=== PATIENT | female | born 1985 | race Caucasian/White ===

== ENCOUNTER → 2018-05-12 | Outpatient (CLI) | payer OTHER ==
[~2018-05-12] MED LIST: MAGIC; PENI-22 PO; PRE20 PO
--- NOTE | 2018-05-12 14:21 | EKG ---
[place] [facility] [place] NAME: YULIANA BALBUENA : [id number] MR: [id number] V: [id number] EXAM DATE: ORDERING PHYSICIAN: JACLYN HAGEN TECHNOLOGIST: LAMAR Sigala Reason : PALPITATIONS Blood Pressure : / mmHG Vent. Rate : 101 BPM Atrial Rate : 101 BPM P-R Int : 148 ms QRS Dur : 080 ms QT Int : 352 ms P-R-T Axes : 059 068 062 degrees QTc Int : 456 ms Sinus tachycardia Possible biatrial enlargement No previous ECGs available Confirmed by LISSETH RALPH ([id number]) on 05/12/2018 3:52:28 PM Referred By: XIAO Confirmed By:LISSETH RALPH
== END ==
LOC: RESP 14:09
PROVIDERS: ATTEND Physician Assistant
DX: R00.0 Tachycardia, unspecified (principal)
CPT/HCPCS: 93005

== ENCOUNTER → 2018-05-20 | Outpatient (CLI) | payer OTHER ==
--- NOTE | 2018-05-22 23:37 | RT HOLTER TEST ---
FACILITY: [facility] PATIENT NAME: YULIANA BALBUENA : [id number] MR: [id number] V: [id number] EXAM DATE: ORDERING PHYSICIAN: JACLYN HAGEN TECHNOLOGIST: Dewayne Slade-up date: 2018-05-20 15:29:00 Duration: 47:58:00 Test Indications: R00.0, R94.31 Medications: NONE [id number] QRS complexes * Ventricular ectopics which represent % of total QRS comp. 9 Supraventricular ectopics which represent <1 % of total QRS comp. * Paced QRS complexes which represent % of total QRS comp. VENTRICULAR ECTOPY * Isolated * Bigeminal Cycles * Couplets * Runs * Beats in Runs * Beats LONGEST at * BPM at :: -- * Beats FASTEST at * BPM at :: -- SUPRAVENTRICULAR ECTOPY 5 Isolated 0 Couplets 1 Runs 4 Beats in Runs 4 Beats LONGEST at 139 BPM at 23:58:30 2018-05-21 4 Beats FASTEST at 139 BPM at 23:58:30 2018-05-21 HEART RATES 55 MIN at 04:40:22 2018-05-21 88 AVG 143 MAX at 19:12:21 2018-05-20 LONGEST RR 1.880 secs at 09:46:11 2018-05-22 S-T LEVELS Channel 1 -12.800 mm MIN at 15:29:00 2018-05-20 -12.800 mm MAX at 15:29:00 2018-05-20 Channel 2 -12.800 mm MIN at 15:29:00 2018-05-2012.800 mm MAX at 15:29:00 2018-05-20 Channel 3 -12.800 mm MIN at 15:29:00 2018-05-20.800 mm MAX at 15:29:00 2018-05-20 Sinus rhythym throughout test. Infrequent SVE generally in isolation but with 2 runs each 4 beats long. One noted as rapid heart rat e by patient. Infrequent pauses versus sinus arrythmia. Patient events during exercise correlate with sinus tachycardia. Negative halter test. Confirmed by Jamey Reardon ([id number]) on 05/22/2018 11:37:16 PM Referred By: Overread By: Jamey Garner
== END ==
LOC: US 03:07
PROVIDERS: ATTEND Physician Assistant
DX: R94.31 Abnormal electrocardiogram [ECG] [EKG] (principal)
CPT/HCPCS: 93225; 93226; 93306

== ENCOUNTER 2018-08-12 15:52 | Emergency (ER) | payer OTHER ==
--- NOTE | 2018-08-12 16:03 | ER Report ---
History and Physical Time Seen By MD: 16:03 Hx. of Stated Complaint: states pain inright leg since Dec 2017. started PT 2 months ago for 1 x per week. states it has increased her pain and caused back pain. pain has been in upper right thigh only. no pain currently but today she has experienced warmth to the site HPI/ROS CHIEF COMPLAINT: right leg warmer than left leg HISTORY OF PRESENT ILLNESS: Patient is a 32 year old female presenting to the ED with complaints of a right leg that is warmer than the left leg. Patient states that she has had calf pain for about one year. Pain states the pain has been moving around her leg, is sometimes in her ankle, knee, etc. Patient also states that her leg feels "different". Feels like it is more sensitive. States it feels better when she stands verses sitting or laying down. Patient states she has tried physical therapy. Patient states that she stopped physical therapy because it caused her to have back pain. Today she felt her upper right leg felt warmer than the left leg. Denies edema or erythemia. REVIEW OF SYSTEMS: Respiratory: No cough, no dyspnea. Cardiovascular: No chest pain, no palpitations. Gastrointestinal: No vomiting, no abdominal pain. Musculoskeletal: No back pain. Allergies: Coded Allergies: Sulfa (Sulfonamide Antibiotics) (Verified Allergy, Mild, RASH, 08/12/18) Home Meds Active Scripts Prednisone (PREDNISONE) 20 Mg Tablet, 40 MG PO DAILY, #10 TAB Prov:LUIS CARLOS NUNEZ 08/12/18 Hydrocodone Bit/Acetaminophen (HYDROCODON-ACETAMINOPHEN 5-325) 1 Each Tablet, 1 EACH PO Q4-6H PRN for PAIN, #8 TAB Prov:LUIS CARLOS NUNEZ 08/12/18 Past Medical/Surgical History Patient has a medical history of frequency headaches, psoriasis, sinus tachycardia, and trace mitral valve regurgitation. Patient denies any surgical history. Reviewed Nurses Notes: Yes Smoking Status: Never Smoker Hx Substance Use Disorder: No Hx Alcohol Use: No Constitutional Vital Sign - Last 24 Hours 08/12/18 08/12/18 08/12/18 08/12/18 15:57 16:00 16:06 16:30 Temp 98.9 Pulse 114 110 114 Resp 18 B/P (MAP) 148/109 140/112 (121) 139/102 (114) 155/103 (120) Pulse Ox 95 95 94 O2 Delivery Room Air 08/12/18 17:30 Pulse 97 B/P (MAP) 130/86 (101) Pulse Ox 93 Physical Exam General Appearance: The patient is alert, has no immediate need for airway protection and no current signs of toxicity. Eyes: Pupils equal and round no injection. Respiratory: Chest is non tender, lungs are clear to auscultation. Cardiac: regular rate and rhythm. Tachycardia. No murmur noted. Pedal pulses 2+ bilaterally. Gastrointestinal: Abdomen is soft and non tender, no masses, bowel sounds no rmal. Musculoskeletal: Neck: Neck is supple and non tender. Extremities have full range of motion and are non tender. No edema noted. Slight increase in temperature to palpation in right upper thigh verses left. Skin: No rashes or lesions. DIFFERENTIAL DIAGNOSIS: After history and physical exam differential diagnosis was considered for DVT, Cellulitis, sciatica. Medical Decision Making Data Points Result Diagram: 08/12/18 1626 08/12/18 1626 Laboratory Hematology Test 08/12/18 16:26 Red Blood Count 5.05 M/uL (4.17-5.56) Mean Corpuscular Volume 84.6 fL (80.0-96.0) Mean Corpuscular Hemoglobin 28.9 pg (26.0-33.0) Mean Corpuscular Hemoglobin Concent 34.2 g/dL (32.0-36.0) Red Cell Distribution Width 13.2 % (11.5-14.5) Mean Platelet Volume 8.5 fL (7.2-11.1) Neutrophils (%) (Auto) 45.5 % (39.4-72.5) Lymphocytes (%) (Auto) 34.7 % (17.6-49.6) Monocytes (%) (Auto) 12.4 % (4.1-12.4) Eosinophils (%) (Auto) 6.7 % (0.4-6.7) Basophils (%) (Auto) 0.7 % (0.3-1.4) Nucleated RBC Relative Count (auto) 0.1 /100WBC Neutrophils # (Auto) 2.5 K/uL (2.0-7.4) Lymphocytes # (Auto) 1.9 K/uL (1.3-3.6) Monocytes # (Auto) 0.7 K/uL (0.3-1.0) Eosinophils # (Auto) 0.4 K/uL (0.0-0.5) Basophils # (Auto) 0.0 K/uL (0.0-0.1) Nucleated RBC Absolute Count (auto) 0.00 K/uL D-Dimer Quantitative (PE/DVT) 0.64 ug/ml (0-0.50) Sodium Level 139 mmol/L (137-145) Potassium Level 3.9 mmol/L (3.5-5.0) Chloride Level 103 mmol/L (98-107) Carbon Dioxide Level 26 mmol/L (22-31) Blood Urea Nitrogen 10 mg/dl (7-18) Creatinine 0.60 mg/dl (0.52-1.04) Glomerular Filtration Rate Calc > 60.0 Random Glucose 84 mg/dl (75-110) Calcium Level 9.3 mg/dl (8.4-10.2) Total Bilirubin 0.3 mg/dl (0.2-1.3) Aspartate Amino Transf (AST/SGOT) 40 U/L (0-35) Alanine Aminotransferase (ALT/SGPT) 50 U/L (0-56) Alkaline Phosphatase 96 U/L (0-126) Total Protein 8.3 g/dl (6.3-8.2) Albumin 4.7 g/dl (3.5-5.0) Chemistry Test 08/12/18 16:26 White Blood Count 5.5 k/uL (4.5-11.0) Red Blood Count 5.05 M/uL (4.17-5.56) Hemoglobin 14.6 g/dL (12.0-16.0) Hematocrit 42.7 % (34.0-47.0) Mean Corpuscular Volume 84.6 fL (80.0-96.0) Mean Corpuscular Hemoglobin 28.9 pg (26.0-33.0) Mean Corpuscular Hemoglobin Concent 34.2 g/dL (32.0-36.0) Red Cell Distribution Width 13.2 % (11.5-14.5) Platelet Count 266 K/uL (150-450) Mean Platelet Volume 8.5 fL (7.2-11.1) Neutrophils (%) (Auto) 45.5 % (39.4-72.5) Lymphocytes (%) (Auto) 34.7 % (17.6-49.6) Monocytes (%) (Auto) 12.4 % (4.1-12.4) Eosinophils (%) (Auto) 6.7 % (0.4-6.7) Basophils (%) (Auto) 0.7 % (0.3-1.4) Nucleated RBC Relative Count (auto) 0.1 /100WBC Neutrophils # (Auto) 2.5 K/uL (2.0-7.4) Lymphocytes # (Auto) 1.9 K/uL (1.3-3.6) Monocytes # (Auto) 0.7 K/uL (0.3-1.0) Eosinophils # (Auto) 0.4 K/uL (0.0-0.5) Basophils # (Auto) 0.0 K/uL (0.0-0.1) Nucleated RBC Absolute Count (auto) 0.00 K/uL D-Dimer Quantitative (PE/DVT) 0.64 ug/ml (0-0.50) Glomerular Filtration Rate Calc > 60.0 Calcium Level 9.3 mg/dl (8.4-10.2) Total Bilirubin 0.3 mg/dl (0.2-1.3) Aspartate Amino Transf (AST/SGOT) 40 U/L (0-35) Alanine Aminotransferase (ALT/SGPT) 50 U/L (0-56) Alkaline Phosphatase 96 U/L (0-126) Total Protein 8.3 g/dl (6.3-8.2) Albumin 4.7 g/dl (3.5-5.0) Coagulation Test 08/12/18 16:26 D-Dimer Quantitative (PE/DVT) 0.64 ug/ml EKG/Imaging Imaging EXAMINATION: CT CHEST PULMONARY ANGIOGRAM COMPARISON: None available HISTORY: elevated d-dimer PROCEDURE: Pulmonary arterial phase imaging of the chest with 75 mL intravenous Isovue 370. Reconstruction of the source data set includes multiplanar 2D in the sagittal and coronal planes, and 3D reconstructed coronal slab MIP series. One of the following dose optimization techniques was utilized in the performance of this exam: Automated exposure control; adjustment of the mA and/or kV according to the patient's size; or use of an iterative reconstruction technique. Specific details can be referenced in the facility's radiology CT exam operational policy. FINDINGS: Pulmonary vasculature: There is good contrast opacification of the pulmonary arterial system. No pulmonary embolism. Main pulmonary artery size is normal. Cardiac and mediastinum: Cardiac chamber size is normal. No pericardial effusion. No thoracic aortic aneurysm or dissection. Lymph nodes: Negative. Lungs and pleura: No focal consolidation or pulmonary nodule. No pneumothorax, pulmonary edema, or pleural effusion. Airways: Negative. Visualized upper abdomen: No acute findings. Osseous structures: Negative. IMPRESSION: Negative chest CT. No pulmonary embolism or evidence of acute cardiopulmonary disease. Report Dictated By: Chintan Tracey MD at 08/12/2018 6:30 PM Report E-Signed By: Chintan Tracey MD at 08/12/2018 6:37 PM EXAMINATION: Lumbar spine radiographs 4 views HISTORY: Pain in right leg. COMPARISON: None. FINDINGS: AP, lateral and bilateral oblique views of the lumbar spine are obtained. Bones: There are 5 nonrib-bearing lumbar type vertebral bodies. Vertebral body heights are maintained. Disc spaces: Negative. Posterior elements: There is no pars defect. Alignment: Normal. Hardware: None. Soft tissues: Negative. IMPRESSION: No acute fracture or other bony abnormality of the lumbar spine. Report Dictated By: Amee Ramsay MD at 08/12/2018 5:15 PM Report E-Signed By: Amee Ramsay MD at 08/12/2018 5:18 PM EXAMINATION: US VENOUS LOWER EXT RT COMPARISON: None Available HISTORY: Lower extremity intermittently warm to touch and painful for one year. FINDINGS: Standard right lower extremity Doppler ultrasound with color flow and spectral analysis is performed. The common femoral, femoral, and popliteal veins are widely patent and compress appropriately. The visualized calf veins and the proximal greater saphenous vein are patent. No popliteal fluid collection. IMPRESSION: No right lower extremity deep venous thrombosis. Report Dictated By: Chintan Tracey MD at 08/12/2018 5:13 PM Report E-Signed By: Chintan Tracey MD at 08/12/2018 5:14 PM ED Course/Re-evaluation ED Course Patient was admitted to the room and placed in the bed. History and physical was obtained. Differential diagnoses were considered. IV was placed and labs were obtained. An ultrasound of the right leg was obtained. No DVT was noted. Lab work was not significant except for a slightly elevated D-Dimer. Ordered a CTA which was negative for PE. Discussed results with the patient. Will send the patient home on some pain medication and prednisone. Patient agrees to plan of care. Patient to follow up with her PCP. Decision to Disposition Date: Aug 12, 2018 Decision to Disposition Time: 19:11 Depart Departure Latest Vital Signs Vital Signs Date Time Temp Pulse Resp B/P (MAP) Pulse Ox O2 Delivery O2 Flow Rate FiO2 08/12/18 17:30 97 130/86 (101) 93 08/12/18 15:57 98.9 18 Room Air Impression: Primary Impression: Sciatica Condition: Improved Disposition: HOME OR SELF-CARE New Scripts Prednisone (PREDNISONE) 20 Mg Tablet 40 MG PO DAILY, #10 TAB Prov: LUIS CARLOS NUNEZ 08/12/18 Hydrocodone Bit/Acetaminophen (HYDROCODON-ACETAMINOPHEN 5-325) 1 Each Tablet 1 EACH PO Q4-6H PRN for PAIN, #8 TAB Prov: LUIS CARLOS NUNEZ 08/12/18 Patient Instructions: Sciatica (ED) Additional Instructions: Limit activity by pain. Continue with normal activity, you may exercise. Follow up with your primary care provider in the next week. Take the medication as prescribed. Return to the ER if condition worsens. Problem Qualifiers Primary Impression: Sciatica Laterality: right Qualified Codes: M54.31 - Sciatica, right side LUIS CARLOS NUENZ Aug 12, 2018 16:03
[2018-08-12 16:53] LABS: PLATELET COUNT, AUTOMATED 266 K/uL (150-450)
--- NOTE | 2018-08-12 17:18 | RADIOLOGY IMAGING REPORT ---
FACILITY: [facility] - [place] PATIENT NAME: Patricia Fry : 1985 MR: [id number] V: [id number] EXAM DATE: ORDERING PHYSICIAN: LUIS ACRLOS NUNEZ TECHNOLOGIST: Location: [facility] Patient: Patricia Fry : 1985 Visit/Account:[id number] Date of Sevice: 08/12/2018 EXAMINATION: US VENOUS LOWER EXT RT COMPARISON: None Available HISTORY: Lower extremity intermittently warm to touch and painful for one year. FINDINGS: Standard right lower extremity Doppler ultrasound with color flow and spectral analysis is performed. The common femoral, femoral, and popliteal veins are widely patent and compress appropriately. The v isualized calf veins and the proximal greater saphenous vein are patent. No popliteal fluid collection. IMPRESSION: No right lower extremity deep venous thrombosis. Report Dictated By: Chintan Tracey MD at 08/12/2018 5:13 PM Report E-Signed By: Chintan Tracey MD at 08/12/2018 5:14 PM WSN:[id number]
--- NOTE | 2018-08-12 17:22 | RADIOLOGY IMAGING REPORT ---
FACILITY: [facility] - [place] PATIENT NAME: Patricia Fry : 1985 MR: [id number] V: [id number] EXAM DATE: ORDERING PHYSICIAN: LUIS CARLOS NUNEZ TECHNOLOGIST: Location: [facility] Patient: Patricia Fry : 1985 Visit/Account:[id number] Date of Sevice: 08/12/2018 EXAMINATION: Lumbar spine radiographs 4 views HISTORY: Pain in right leg. COMPARISON: None. FINDINGS: AP, lateral and bilateral oblique views of the lumbar spine are obtained. Bones: There are 5 nonrib-bearing lumbar type vertebral bodies. Vertebral body heights are maintaine d. Disc spaces: Negative. Posterior elements: There is no pars defect. Alignment: Normal. Hardware: None. Soft tissues: Negative. IMPRESSION: No acute fracture or other bony abnormality of the lumbar spine. Report Dictated By: Amee Ramsay MD at 08/12/2018 5:15 PM Report E-Signed By: Amee Ramsay MD at 08/12/2018 5:18 PM WSN:[email or web address]
[2018-08-12] MEDS ORDERED: IOPAMIDOL 76% 150 ML INFUS BTL 150 ML ONE (17:57)
[2018-08-12] MEDS ORDERED: NS(*) 0.9% 50 ML BAG 50 ML ONE (17:57)
--- NOTE | 2018-08-12 18:41 | RADIOLOGY IMAGING REPORT ---
[place] [facility] [place] NAME: Patricia Fry : 1985 MR: [id number] V: [id number] EXAM DATE: ORDERING PHYSICIAN: LUIS CARLOS NUNEZ TECHNOLOGIST: Location: [facility] Patient: Patricia Fry : 1985 Visit/Account:[id number] Date of Sevice: 08/12/2018 EXAMINATION: CT CHEST PULMONARY ANGIOGRAM COMPARISON: None available HISTORY: elevated d-dimer PROCEDURE: Pulmonary arterial phase imaging of the chest with 75 mL intravenous Isovue 370. Reconstru ction of the source data set includes multiplanar 2D in the sagittal and coronal planes, and 3D recon structed coronal slab MIP series. One of the following dose optimization techniques was utilized in the performance of this exam: Autom ated exposure control; adjustment of the mA and/or kV according to the patient's size; or use of an i terative reconstruction technique. Specific details can be referenced in the facility's radiology C T exam operational policy. FINDINGS: Pulmonary vasculature: There is good contrast opacification of the pulmonary arterial system. No pul monary embolism. Main pulmonary artery size is normal. Cardiac and mediastinum: Cardiac chamber size is normal. No pericardial effusion. No thoracic aortic aneurysm or dissection. Lymph nodes: Negative. Lungs and pleura: No focal consolidation or pulmonary nodule. No pneumothorax, pulmonary edema, or pl eural effusion. Airways: Negative. Visualized upper abdomen: No acute findings. Osseous structures: Negative. IMPRESSION: Negative chest CT. No pulmonary embolism or evidence of acute cardiopulmonary disease. Report Dictated By: Chintan Tracey MD at 08/12/2018 6:30 PM Report E-Signed By: Chintan Tracey MD at 08/12/2018 6:37 PM WSN:[id number]
[2018-08-12] MEDS ORDERED: PRED20TA6 PO (19:13)
[2018-08-12] MEDS ORDERED: HYDR-385 PO (19:13)
[2018-08-12 19:19] VITALS: BP 134/92
== END 2018-08-12 19:22 | disposition home or self-care (01) ==
LOC: ER 15:56
DX: M54.31 Sciatica, right side (principal)
CPT/HCPCS: 71275; 72120; 85025; 85379; 93971; 99284; J7050; Q9967; 82040; 82247; 82310; 82374; 82435; 82565; 82947; 84075; 84132; 84155; 84295; 84450; 84460; 84520

== ENCOUNTER → 2018-12-16 | Outpatient (CLI) | payer OTHER ==
[~2018-12-16] MED LIST changes: +HYDR-385 PO; +PRED20TA6 PO
--- NOTE | 2018-12-16 14:40 | RADIOLOGY IMAGING REPORT ---
FACILITY: [facility] PATIENT NAME: Patricia Fry : 1985 MR: [id number] V: [id number] EXAM DATE: ORDERING PHYSICIAN: ZOILA ROPER TECHNOLOGIST: Location: [facility] - [place] Patient: Patricia Fry : 1985 Visit/Account:[id number] Date of Sevice: 12/16/2018 MRI right knee Indication: Knee pain. Calf pain. Comparison: None available. Technique: Multiplanar, multisequence MRI examination is performed of the right knee without contrast . Findings: Medial compartment: Undersurface fraying the peripheral posterior horn medial meniscus. The articular cartilage surfaces are unremarkable. Lateral compartment: No discrete tear of the lateral meniscus. The articular cartilage surfaces are unremarkable. Patellofemoral compartment: Minimal chondral irregularity median ridge patella cartilage. Bones and marrow: No acute fracture or dislocation. Ligaments and tendons: ACL and PCL are intact. The extensor mechanism is intact. The MCL is intact. The iliotibial band, biceps femoris tendon, and the fibular collateral ligament is intact The popliteus tendon is also intact. Soft tissues: There is no significant joint effusion. Minimal prepatellar edema. IMPRESSION: 1. Minimal chondromalacia patellofemoral compartment cartilage. 2. No acute osseous abnormality. Report Dictated By: Marek Malagon MD at 12/16/2018 2:29 PM Report E-Signed By: Marek Malagon MD at 12/16/2018 2:31 PM WSN:[id number]
== END ==
LOC: MRI 00:43
PROVIDERS: ATTEND Pain Medicine Pain Medicine
DX: M25.561 Pain in right knee (principal)